=== PATIENT | female | born 1970 | race Caucasian/White ===

== ENCOUNTER 2018-09-22 19:43 | Emergency (ER) | payer MEDICAID ==
[~2018-09-22] VITALS: Ht 157.5 cm; Wt 54.0 kg
[2018-09-22] MEDS ORDERED: SODIUM CHLORIDE 0.9% 1,000 ML IV ONE (20:00)
[2018-09-22 20:31] LABS: EOSINOPHILS % 0.7 % (0.0-5.0); HEMATOCRIT. 38.5 % (36.0-48.0); HEMOGLOBIN. 13.1 g/dL (12.0-16.0); LYMPHOCYTES % 14.2 % (20.0-50.0); MEAN CORPUSCULAR HEMOGLOBIN 29.5 pg (28.0-32.0); MEAN PLATELET VOLUME 7.3 fl (7.4-10.4); MONOCYTES % 6.1 % (2.0-8.0); PLATELET 317 x1000/uL (130-400); RED BLOOD CELL COUNT 4.43 mill/uL (4.2-5.4); RED CELL DISTRIBUTION WIDTH 13.1 % (11.6-14.6)
[2018-09-22 20:36] LABS: CHLORIDE 99 mEq/L (98-107)
[2018-09-22 20:44] LABS: CARBAMAZEPINE 2.1 ug/mL (4-12)
[2018-09-22 22:40] VITALS: BP 109/67
== END 2018-09-22 23:07 | disposition home or self-care (01) ==
LOC: ER 20:41
DX: G40.909 Epilepsy, unspecified, not intractable, without status epilepticus (principal)
CPT/HCPCS: 36415; 80053; 80156; 85025; 99283; J7030